=== PATIENT | male | born 1980 | race Two or more races ===

== ENCOUNTER 2018-05-30 10:29 | Emergency (ER) | payer SELFPAY ==
[2018-05-30] MEDS ORDERED: MORPHINE 2 MG/ML CARPUJECT IVP STA (10:51)
[2018-05-30] MEDS ORDERED: ONDANSETRON 4 MG/2 ML VIAL IVP STA (10:51)
[2018-05-30] MEDS ORDERED: SODIUM CHLORIDE 0.9% 1,000 ML IV ONE (10:51)
[2018-05-30 11:05] LABS: BASOPHILS % (AUTO) 0.6 %; EOSINOPHILS # (AUTO) 0.1 10^3/uL (0.0-0.7); EOSINOPHILS % (AUTO) 1.7 %; HGB - HEMOGLOBIN 15.5 g/dL (14.0-18.0); LYMPHOCYTES # (AUTO) 1.9 10^3/uL (1.5-3.5); LYMPHOCYTES % (AUTO) 34.1 %; MEAN CORPUSCULAR HEMOGLOBIN 28.5 pg (27.0-31.0); MEAN CORPUSCULAR HGB CONC 34.5 g/dL (32.0-36.0); MEAN CORPUSCULAR VOLUME 82.7 fL (80.0-94.0); MEAN PLATELET VOLUME 10.3 fL (7.4-11.4); MONOCYTES # (AUTO) 0.5 10^3/uL (0.0-1.0); MONOCYTES % (AUTO) 8.4 %; NEUTROPHILS % (AUTO) 55.2 %; PLT - PLATELET COUNT 181 10^3/uL (130-450); RED BLOOD COUNT 5.44 10^6/uL (4.70-6.10); RED CELL DISTRIBUTION WIDTH 12.8 % (12.0-15.0); WHITE BLOOD COUNT 5.5 x10^3/uL (4.8-10.8)
[2018-05-30 11:05] LABS: BILIRUBIN,URINE NEGATIVE (NEGATIVE); GLUCOSE, URINE (UA) >=1000 mg/dL (NEGATIVE); KETONES,URINE (UA) NEGATIVE (NEGATIVE); LEUKOCYTE ESTERASE, URINE NEGATIVE (NEGATIVE); NITRITE,URINE NEGATIVE (NEGATIVE); OCCULT BLOOD,URINE NEGATIVE (NEGATIVE); PH,URINE 6.5 PH (5.0-7.5); PROTEIN,URINE NEGATIVE (NEGATIVE); UROBILINOGEN,URINE 0.2 (NORMAL) E.U./dL (NORMAL)
[2018-05-30 11:06] LABS: CLARITY,URINE CLEAR (CLEAR)
[2018-05-30 11:17] LABS: ALBUMIN/GLOBULIN RATIO 1.3 (1.0-2.2); BILIRUBIN,TOTAL 0.7 mg/dL (0.2-1.0); CALCIUM 8.9 mg/dL (8.5-10.3); CREATININE 0.8 mg/dL (0.6-1.2); TOTAL PROTEIN 7.2 g/dL (6.7-8.2)
[2018-05-30] MEDS ORDERED: IOVERSOL 320 100 ML VIAL IVP ONE ×3 (11:25→12:07)
--- NOTE | 2018-05-30 11:26 | ED Physician Documentation ---
PD HPI ABD PAIN - Stated complaint Stated Complaint: ABD PX - Chief complaint Chief Complaint: Abd Pain - History obtained from History obtained from: Patient, Family - History of Present Illness Timing - onset: Yesterday Timing - duration: Days (1) Timing - details: Abrupt onset, Still present Pain level max: 7 Pain level now: 7 Quality: Sharp Location: Periumbilical, RLQ Improved by: Other (Nothing) Worsened by: Eating Associated symptoms: Nausea, Vomiting. No: Fever, Hematemesis, Diarrhea, Constipation, Melena, Hematochezia, Dysuria, Hematuria, Chest pain, Dizzy, Near syncope / syncope, Loss of appetite, Weight loss Similar symptoms before: Has not had sx before Recently seen: Not recently seen - Additional information Additional information: 37-year-old male with history of diabetes and no past surgical history here with complaint of abdominal pain which started yesterday and associated with nausea and vomiting. Patient denies any trauma, travel, recent illness or sick contacts. Review of Systems Ten Systems: 10 systems reviewed and negative Constitutional: denies: Fever, Chills, Myalgias Nose: denies: Congestion Throat: denies: Sore throat Cardiac: denies: Chest pain / pressure Respiratory: denies: Dyspnea, Cough GI: reports: Abdominal Pain, Nausea, Vomiting. denies: Abdominal Swelling, Constipation, Diarrhea, Hematemesis, Bloody / black stool : denies: Dysuria, Frequency Musculoskeletal: denies: Back pain Neurologic: denies: Generalized weakness PD PAST MEDICAL HISTORY - Past Medical History Endocrine/Autoimmune: Type 2 diabetes - Past Surgical History Past Surgical History: No - Present Medications Home Medications: Ambulatory Orders Medication Instructions Recorded Confirmed Dicyclomine [Bentyl] 10 mg PO QID PRN #30 capsule 05/30/18 Insulin Detemir [Levemir Flextouch] SQ BID 05/30/18 Ondansetron Odt [Zofran] 4 mg TL Q6H PRN #10 tablet 05/30/18 Pantoprazole [Protonix] 40 mg PO DAILY #30 tablet 05/30/18 RX: metFORMIN [Glucophage] 1,000 mg PO BIDWM 05/30/18 - Allergies Allergies/Adverse Reactions: Allergies Allergy/AdvReac Type Severity Reaction Status Date / Time No Known Drug Allergies Allergy Verified 05/30/18 10:40 - Social History Does the pt smoke?: No Smoking Status: Never smoker Does the pt drink ETOH?: No Does the pt have substance abuse?: No - Immunizations Immunizations are current?: Yes - POLST Patient has POLST: No PD ED PE NORMAL - Vitals Vital signs reviewed: Yes - General General: Alert and oriented X 3, No acute distress, Well developed/nourished - HEENT HEENT: Pharynx benign, Other (Dry tongue) - Neck Neck: Supple, no meningeal sign - Cardiac Cardiac: RRR, No murmur - Respiratory Respiratory: Clear bilaterally - Abdomen Abdomen: Normal bowel sounds, Soft, Non distended, No organomegaly, Other (Mild tenderness to palpation of the periumbilical and right lower quadrant of the abdomen. No rebound. No rigidity. No guarding.) - Back Back: No CVA TTP - Derm Derm: Normal color, Warm and dry - Extremities Extremities: No deformity - Neuro Neuro: Alert and oriented X 3 - Psych Psych: Normal mood, Normal affect Results - Vitals Vitals: Vital Signs - 24 hr 05/30/18 05/30/18 05/30/18 10:37 11:45 12:53 Temperature 36.2 C L 36.3 C L Heart Rate 74 63 57 L Respiratory 16 15 15 Rate Blood Pressure 134/87 H 118/72 100/72 O2 Saturation 98 97 97 Oxygen O2 Source Room air - Labs Labs: Laboratory Tests 05/30/18 05/30/18 05/30/18 10:45 10:55 10:55 WBC 5.5 RBC 5.44 Hgb 15.5 Hct 45.0 MCV 82.7 MCH 28.5 MCHC 34.5 RDW 12.8 Plt Count 181 MPV 10.3 Neut # (Auto) 3.0 Lymph # (Auto) 1.9 Pike # (Auto) 0.5 Eos # (Auto) 0.1 Baso # (Auto) 0.0 Absolute Nucleated RBC 0.00 Nucleated RBC % 0.0 Sodium 133 L Potassium 4.0 Chloride 101 Carbon Dioxide 25 Anion Gap 7.0 BUN 15 Creatinine 0.8 Estimated GFR (MDRD) 108 Glucose 316 H Calcium 8.9 Total Bilirubin 0.7 AST 20 ALT 33 Alkaline Phosphatase 76 Total Protein 7.2 Albumin 4.0 Globulin 3.2 Albumin/Globulin Ratio 1.3 Lipase 33 Urine Color YELLOW Urine Clarity CLEAR Urine pH 6.5 Ur Specific [place] 1.025 Urine Protein NEGATIVE Urine Glucose (UA) >=1000 H Urine Ketones NEGATIVE Urine Occult Blood NEGATIVE Urine Nitrite NEGATIVE Urine Bilirubin NEGATIVE Urine Urobilinogen 0.2 (NORMAL) Ur Leukocyte Esterase NEGATIVE Ur Microscopic Review NOT INDICATED Urine Culture Comments NOT INDICATED PD MEDICAL DECISION MAKING - ED course Complexity details: reviewed results, re-evaluated patient, considered differential (Appendicitis, obstruction, UTI), d/w patient, d/w family ED course: 1231 Patient states feeling better. Denies any nausea or vomiting or abdominal pain. States feels like his stomach is acidic. Inform of test results including CT And his labs. Patient informed that his glucose is elevated. He stated he is taking his medication for diabetes but has not been following his diet due to the holidays and he does not exercise. Patient requesting for food right now. Discussed patient's diabetic diet and importance of glucose control. Discussed for now clear liquids and if tolerates advance to brat diet. Patient wants to go home. He will be discharged on Protonix, Zofran and Bentyl.Instructed to follow-up with his primary doctor for reevaluation, test for food allergies or gluten allergy and referral to a GI doctor. Patient and spouse expressed understanding of follow-up. Departure - Departure Disposition: 01 Home, Self Care Clinical Impression: Abdominal pain Qualifiers: Abdominal location: periumbilical Qualified Code(s): R10.33 - Periumbilical pain Hyperglycemia due to type 2 diabetes mellitus Qualifiers: Diabetes mellitus emt intermediate insulin use: with mcfp use Qualified Code(s): E11.65 - Type 2 diabetes mellitus with hyperglycemia Condition: Stable Instructions: ED Abdominal Pain Unkn Cause, ED Hyperglycemia Diabetic Prescriptions: Dicyclomine [Bentyl] 10 mg PO QID PRN #30 capsule PRN Reason: Pain Ondansetron Odt [Zofran] 4 mg TL Q6H PRN #10 tablet PRN Reason: Nausea / Vomiting Pantoprazole [Protonix] 40 mg PO DAILY #30 tablet Comments: Make sure you follow your diabetic diet, exercise and take your diabetic medications except for the metformin (but only for 2 days For metformin0. Clear liquids today, small amounts but frequently. If nauseous take the Zofran as prescribed. If tolerated advance to brat diet (bananas, rice, applesauce, toast or crackers). Also in small amounts but frequently. If tolerate this advance to bland diet. Follow-up with your primary doctor this week for reevaluation, test for food allergies such as gluten, and referral to a GI doctor. If worse return to the emergency room. Discharge Date/Time: 05/30/18 12:55
--- NOTE | 2018-05-30 12:20 | CT Report ---
Reason: rlq, periumbilical pain, n/v Procedure Date: 05/30/2018 Accession Number: [id number] / [id number] Procedure: CT - Abdomen/Pelvis W/ CPT Code: FULL RESULT: EXAM: CT ABDOMEN AND PELVIS EXAM DATE: 05/30/2018 11:37 AM. CLINICAL HISTORY: Right lower quadrant and periumbilical pain. Nausea and vomiting. COMPARISONS: None. TECHNIQUE: Routine helical CT imaging was performed through the abdomen and pelvis. IV contrast: 100 cc Optiray 320. Enteric contrast: No. Reconstructions: Coronal and sagittal. In accordance with CT protocol optimization, one or more of the following dose reduction techniques were utilized for this exam: automated exposure control, adjustment of mA and/or KV based on patient size, or use of iterative reconstructive technique. FINDINGS: Lung Bases: There is respiratory motion and atelectasis in the lung bases. Liver: Unremarkable. No focal lesion. Gallbladder/Bile Ducts: Unremarkable. Spleen: Within normal limits. Pancreas: Unremarkable. Adrenal Glands: No nodules. Kidneys: Relatively symmetric in size and enhancement. No focal lesion or hydronephrosis. Peritoneal Cavity/Bowel: No evidence of bowel obstruction or inflammation. The appendix is within normal limits. Pelvic Organs: Urinary bladder is unremarkable. No pelvic adenopathy or free fluid. Vasculature: No abdominal aortic aneurysm. The portal veins are patent. Bones: No suspicious osseous lesion. Other: No retroperitoneal adenopathy. IMPRESSION: No evidence of acute infectious or inflammatory process in the abdomen or pelvis. Specifically, no evidence for acute appendicitis. [facility]
[2018-05-30 12:55] VITALS: BP 100/72
== END 2018-05-30 12:55 | disposition home or self-care (01) ==
LOC: ED 10:29
DX: R10.33 Periumbilical pain (principal); E11.65 Type 2 diabetes mellitus with hyperglycemia; Z79.4 Long term (current) use of insulin
CPT/HCPCS: 36415; 74177; 80053; 81003; 83690; 85025; 96361; 96374; 96375; 99283; 99284; Q9967; 81001; 87086